=== PATIENT | male | born 2000 | race African-American/Black ===

== ENCOUNTER 2019-08-15 13:06 | Inpatient (IN) | payer BC ==
[~2019-08-15] VITALS: Ht 180.3 cm; Wt 83.9 kg
[2019-08-15 15:16] VITALS: BP 134/77
[2019-08-15] MEDS ORDERED: HALOPERIDOL 5 MG TABLET PO PRN (15:45)
[2019-08-15 16:37] VITALS: BP 113/67
[2019-08-15] MEDS ORDERED: INFLUENZA VIRUS VACCINE QVS 2019-20 (3YR+)/PF 60 MCG/0.5 ML SYRINGE IM ONE (16:45)
[2019-08-15] MEDS ORDERED: RISP1 PO (17:13)
[2019-08-15] MEDS ORDERED: PETROLATUM,WHITE 28 GM JELLY TP PRN (21:15)
[2019-08-15] MEDS ORDERED: CloNIDine HCL 0.1 MG TABLET PO PRN (21:15)
[2019-08-15] MEDS ORDERED: ONDANSETRON HCL 4 MG TABLET PO PRN (21:15)
[2019-08-15] MEDS ORDERED: DOCUSATE SODIUM 100 MG CAPSULE PO PRN (21:15)
[2019-08-15] MEDS ORDERED: MAG HYDROX/AL HYDROX/SIMETH ES 30 ML SUSPENSION UDCUP PO PRN (21:15)
[2019-08-15] MEDS ORDERED: ALBUTEROL SULFATE HFA 90 MCG/PUFF 8 GM INHALER IH PRN (21:15)
[2019-08-15] MEDS ORDERED: ACETAMINOPHEN 325 MG TABLET PO PRN (21:15)
[2019-08-15] MEDS ORDERED: LOPERAMIDE HCL 2 MG CAPSULE PO PRN (21:15)
[2019-08-15] MEDS ORDERED: IBUPROFEN 400 MG TABLET PO PRN (21:15)
[2019-08-15] MEDS ORDERED: MAGNESIUM HYDROXIDE SUSPENSION 30 ML UDCUP PO PRN (21:15)
[2019-08-15] MEDS ORDERED: GuaiFENesin/D-METHORPHAN [SUGAR-FREE] 200-20MG/10 ML SYRUP UDCUP PO PRN (21:15)
[2019-08-16 06:09] VITALS: BP 110/68
[2019-08-16 08:08] VITALS: BP 122/65
[2019-08-16 09:09] LABS: BASOPHILS % (AUTO) 0.6 % (0.0-2.0); EOSINOPHILS % (AUTO) 2.4 % (1.0-6.0); HEMATOCRIT 44.6 % (41-53); HEMOGLOBIN 14.6 g/dL (13.5-17.5); LYMPHOCYTES # (AUTO) 0.9 K/uL (1.0-4.8); LYMPHOCYTES % (AUTO) 19.5 % (22.0-44.0); MEAN CORPUSCULAR HEMOGLOBIN 29.9 pg (26.0-34.0); MEAN CORPUSCULAR HGB CONC 32.8 G/dL (31.0-37.0); MEAN CORPUSCULAR VOLUME 91 fL (80-100); MONOCYTES # (AUTO) 0.4 K/uL (0.1-1.0); NEUTROPHILS # (AUTO) 3.1 K/uL (1.8-7.7); NEUTROPHILS % (AUTO) 68.5 % (40.0-70.0); PLATELET COUNT (AUTO) 273 K/uL (150-450); RED BLOOD CELL COUNT(AUTO) 4.89 MIL/uL (4.50-5.90); RED CELL DISTRIBUTION WIDTH 14.8 % (11.5-14.5)
[2019-08-16 10:22] LABS: ALANINE AMINOTRANSFERASE 21 U/L (12-78); ALBUMIN 4.1 g/dL (3.4-5.0); ALKALINE PHOSPHATASE 74 U/L (46-116); ANION GAP 9 mmol/L (8-16); ASPARTATE AMINOTRANSFERASE 24 U/L (15-37); BILIRUBIN,TOTAL 0.3 mg/dL (0.1-1.0); CALCIUM, TOTAL 9.5 mg/dL (8.8-10.5); CARBON DIOXIDE 29 mmol/L (22-29); CHLORIDE 100 mmol/L (98-107); CHOL/HDL RATIO 1.7 (4.2-7.3); CHOLESTEROL 110 mg/dL (131-200); CREATININE 1.05 mg/dL (0.60-1.30); FREE T4 (FREE THYROXINE) 1.13 ng/dL (0.76-1.46); GLOMERULAR FILTR. RATE CALC > 60 mL/min (>60); GLUCOSE,RANDOM 70 mg/dL (70-110); HDL CHOLESTEROL 64 mg/dL (40-60); LDL CHOL (CALC.) 32 mg/dL (0-130); POTASSIUM 3.7 mmol/L (3.5-5.1); SODIUM SERUM 138 mmol/L (136-145); TOTAL PROTEIN, SERUM 8.5 g/dL (6.4-8.2); TRIGLYCERIDES 70 mg/dL (15-150)
[2019-08-16 10:30] LABS: UREA NITROGEN, BLOOD 9 mg/dL (7-18)
[2019-08-16 16:20] VITALS: BP 119/70
[2019-08-16] MEDS: RisperiDONE 1 MG TABLET PO SCH (16:39)
[2019-08-16] MEDS: LORazepam 2 MG TABLET PO PRN ×2 (16:48→20:50)
[2019-08-16] MEDS: ZOLPIDEM TARTRATE 10 MG TABLET PO PRN (21:35)
[2019-08-17 06:13] VITALS: BP 120/73
[2019-08-17] MEDS: RisperiDONE 1 MG TABLET PO SCH ×2 (08:31→16:13)
[2019-08-17 08:43] VITALS: BP 122/71
[2019-08-17] MEDS: NICOTINE 14 MG/24 HOUR PATCH TD PRN (15:08)
[2019-08-17 16:31] VITALS: BP 126/79
[2019-08-17] MEDS: LORazepam 2 MG TABLET PO PRN (19:08)
[2019-08-18 06:17] VITALS: BP 121/68
[2019-08-18 08:18] VITALS: BP 119/63
[2019-08-18] MEDS: RisperiDONE 1 MG TABLET PO SCH ×2 (09:01→16:33)
[2019-08-18] MEDS: NICOTINE 14 MG/24 HOUR PATCH TD PRN (09:53)
[2019-08-18 16:04] VITALS: BP 124/69
[2019-08-18] MEDS: LORazepam 2 MG TABLET PO PRN (20:50)
[2019-08-19 04:34] VITALS: BP 119/71
[2019-08-19 08:12] VITALS: BP 118/72
[2019-08-19] MEDS: RisperiDONE 1 MG TABLET PO SCH ×2 (08:42→17:00)
[2019-08-19] MEDS: NICOTINE 14 MG/24 HOUR PATCH TD PRN (08:42)
[2019-08-19 16:34] VITALS: BP 118/67
[2019-08-20 00:10] VITALS: BP 120/81
[2019-08-20 08:29] VITALS: BP 120/75
[2019-08-20] MEDS: RisperiDONE 1 MG TABLET PO SCH ×2 (09:00→17:00)
[2019-08-21 00:42] VITALS: BP 116/94
[2019-08-21 08:38] VITALS: BP 125/78
[2019-08-21] MEDS: RisperiDONE 1 MG TABLET PO SCH ×3 (08:53→16:49)
[2019-08-21 16:06] VITALS: BP 117/88
[2019-08-21] MEDS: THIAMINE HCL 100 MG TABLET PO SCH ×2 (16:27→16:49)
[2019-08-22 00:01] VITALS: BP 110/66
[2019-08-22 08:33] VITALS: BP 140/80
[2019-08-22] MEDS: RisperiDONE 1 MG TABLET PO SCH ×2 (09:00→16:52)
[2019-08-22] MEDS: THIAMINE HCL 100 MG TABLET PO SCH ×2 (09:00→16:52)
[2019-08-22] MEDS: MULTIVITAMINS, THERAPEUTIC TABLET PO SCH (09:00)
[2019-08-22 16:05] VITALS: BP 126/71
[2019-08-23 07:06] VITALS: BP 114/75
[2019-08-23 08:13] VITALS: BP_SYST 130
[2019-08-23] MEDS: MULTIVITAMINS, THERAPEUTIC TABLET PO SCH (08:35)
[2019-08-23] MEDS: THIAMINE HCL 100 MG TABLET PO SCH ×2 (08:35→16:09)
[2019-08-23] MEDS: RisperiDONE 1 MG TABLET PO SCH ×2 (08:35→16:09)
[2019-08-23 16:05] VITALS: BP 123/70
[2019-08-23] MEDS: ZOLPIDEM TARTRATE 10 MG TABLET PO PRN (20:35)
[2019-08-24] VITALS: BP 101/63
[2019-08-24 08:40] VITALS: BP 118/69
[2019-08-24] MEDS: RisperiDONE 1 MG TABLET PO SCH ×2 (08:49→16:41)
[2019-08-24] MEDS: MULTIVITAMINS, THERAPEUTIC TABLET PO SCH (08:49)
[2019-08-24] MEDS: THIAMINE HCL 100 MG TABLET PO SCH ×2 (08:49→16:41)
[2019-08-24 16:06] VITALS: BP 121/71
[2019-08-25 00:52] VITALS: BP 140/73
[2019-08-25] MEDS: RisperiDONE 1 MG TABLET PO SCH ×2 (08:07→16:34)
[2019-08-25] MEDS: THIAMINE HCL 100 MG TABLET PO SCH ×2 (08:07→16:34)
[2019-08-25] MEDS: MULTIVITAMINS, THERAPEUTIC TABLET PO SCH (08:07)
[2019-08-25 08:14] VITALS: BP 120/71
[2019-08-25] MEDS ORDERED: RisperiDONE MICROSPHERES 25 MG/2 ML SYRINGE IM SCH (09:00)
[2019-08-25 16:29] VITALS: BP 123/66
[2019-08-25] MEDS: ZOLPIDEM TARTRATE 10 MG TABLET PO PRN (21:04)
[2019-08-26 02:32] VITALS: BP 120/70
[2019-08-26] MEDS: LORazepam 2 MG TABLET PO PRN ×2 (02:41→18:33)
[2019-08-26 08:21] VITALS: BP 133/75
[2019-08-26] MEDS: RisperiDONE 1 MG TABLET PO SCH ×2 (09:03→16:18)
[2019-08-26] MEDS: MULTIVITAMINS, THERAPEUTIC TABLET PO SCH (09:03)
[2019-08-26] MEDS: THIAMINE HCL 100 MG TABLET PO SCH ×2 (09:05→16:18)
[2019-08-26 16:22] VITALS: BP 125/71
[2019-08-26] MEDS: ZOLPIDEM TARTRATE 10 MG TABLET PO PRN (21:15)
[2019-08-27] MEDS: LORazepam 2 MG TABLET PO PRN (01:54)
[2019-08-27 02:36] VITALS: BP 124/72
[2019-08-27 08:17] VITALS: BP 140/85
[2019-08-27] MEDS: RisperiDONE 1 MG TABLET PO SCH ×2 (09:08→17:01)
[2019-08-27] MEDS: THIAMINE HCL 100 MG TABLET PO SCH ×2 (09:08→17:01)
[2019-08-27] MEDS: MULTIVITAMINS, THERAPEUTIC TABLET PO SCH (09:08)
[2019-08-27 16:09] VITALS: BP 122/85
[2019-08-27] MEDS: ZOLPIDEM TARTRATE 10 MG TABLET PO PRN (21:00)
[2019-08-28] MEDS: LORazepam 2 MG TABLET PO PRN ×3 (00:13→16:06)
[2019-08-28 02:54] VITALS: BP 120/73
[2019-08-28 04:21] VITALS: BP 125/84
[2019-08-28 08:23] VITALS: BP 134/68
[2019-08-28] MEDS: MULTIVITAMINS, THERAPEUTIC TABLET PO SCH (08:45)
[2019-08-28] MEDS: RisperiDONE 1 MG TABLET PO SCH ×2 (08:45→16:06)
[2019-08-28] MEDS: THIAMINE HCL 100 MG TABLET PO SCH ×2 (08:45→16:06)
[2019-08-28 16:11] VITALS: BP 122/88
[2019-08-28] MEDS: ZOLPIDEM TARTRATE 10 MG TABLET PO PRN (21:02)
[2019-08-29 00:32] VITALS: BP 110/80
[2019-08-29] MEDS: LORazepam 2 MG TABLET PO PRN (01:33)
[2019-08-29 08:28] VITALS: BP 157/90
[2019-08-29] MEDS: MULTIVITAMINS, THERAPEUTIC TABLET PO SCH (08:33)
[2019-08-29] MEDS: THIAMINE HCL 100 MG TABLET PO SCH (08:33)
[2019-08-29] MEDS: RisperiDONE 1 MG TABLET PO SCH (08:33)
[2019-08-29 10:16] VITALS: BP 139/70
== END 2019-08-29 13:25 | disposition home or self-care (01) | DRG 885 ==
LOC: B2X 16:01
PROVIDERS: ADMIT Psychiatry & Neurology Psychiatry; ATTEND Psychiatry & Neurology Psychiatry
DX: F25.0 Schizoaffective disorder, bipolar type (principal); F10.10 Alcohol abuse, uncomplicated; F12.90 Cannabis use, unspecified, uncomplicated; F41.9 Anxiety disorder, unspecified; K59.00 Constipation, unspecified; F30.10 Manic episode without psychotic symptoms, unspecified; R45.87 Impulsiveness; Z91.19 Patient's noncompliance with other medical treatment and regimen
CPT/HCPCS: 83036; 84439; 84443; J2794